=== PATIENT | female | born 1945 | race Caucasian/White ===

== ENCOUNTER 2022-06-18 09:55 | Outpatient (CLI) | payer MEDICARE, SELFPAY ==
--- NOTE | 2022-06-18 10:15 | CRLHL7_ITS ---
For Patients: As a result of the Cures Act, medical imaging exams and procedure reports are released immediately into your electronic medical record. You may view this report before your referring provider. If you have questions, please contact your health care provider. BILATERAL SCREENING MAMMOGRAM WITH COMPUTER-AIDED DETECTION AND TOMOSYNTHESIS TECHNIQUE: CC and MLO views were obtained. These mammographic images have been obtained using full-field digital technique. These mammographic images were interpreted with the benefit of computer-aided detection. Breast tomosynthesis was used in this interpretation. COMPARISON FILM: 05/06/21, 03/25/20, 03/02/19. FINDINGS: The breasts are heterogeneously dense, which may obscure small masses. IMPRESSION: There is no radiographic evidence for malignancy. ASSESSMENT: BI-RADS Category 2: Benign RECOMMENDATION: Routine screening mammogram in 1 year. A lay language report of this examination will be provided to the patient. JOSEPH GILBERT M.D. Diagnostic/Nuclear Medicine Radiologist [email or web address] Transcribed: 3:[address]/Dictated by: Joseph Gilbert MD @ 06/18/2022 11:28:00 AM (Electronically Signed)
== END 2022-06-18 09:56 | disposition home or self-care (01) ==
LOC: MAMMO 09:56
PROVIDERS: PCP Family Medicine; Visit Provider Physician Assistant
DX: Z12.31 Encounter for screening mammogram for malignant neoplasm of breast (principal); R92.2 Inconclusive mammogram
CPT/HCPCS: 77063; 77067

== ENCOUNTER 2023-06-28 09:56 | Outpatient (CLI) | payer MEDICARE, SELFPAY ==
--- NOTE | 2023-06-28 10:15 | CRLHL7_ITS ---
For Patients: As a result of the Century Cures Act, medical imaging exams and procedure reports are released immediately into your electronic medical record. You may view this report before your referring provider. If you have questions, please contact your health care provider. BILATERAL SCREENING MAMMOGRAM WITH COMPUTER-AIDED DETECTION AND TOMOSYNTHESIS TECHNIQUE: CC and MLO views were obtained. These mammographic images have been obtained using full-field digital technique. These mammographic images were interpreted with the benefit of computer-aided detection. Breast Tomosynthesis was used in this interpretation. COMPARISON FILM: 06/18/22, 05/06/21, 03/25/20. FINDINGS: The breasts are heterogeneously dense, which may obscure small masses IMPRESSION: There is no radiographic evidence for malignancy. ASSESSMENT: BI-RADS Category 2: Benign RECOMMENDATION: Routine screening mammogram in 1 year. A lay language report of this examination will be provided to the patient. Hernandez Diallo M.D. Diagnostic/Nuclear Medicine Radiologist [email or web address] EDYTA/Dictated by: Hernandez Diallo MD @ 06/28/2023 11:21:00 AM (Electronically Signed)
== END 2023-06-28 09:57 | disposition home or self-care (01) ==
LOC: MAMMO 09:58
PROVIDERS: PCP Physician Assistant; Visit Provider Physician Assistant
DX: Z12.31 Encounter for screening mammogram for malignant neoplasm of breast (principal); R92.2 Inconclusive mammogram
CPT/HCPCS: 77063; 77067

== ENCOUNTER 2024-06-30 09:53 | Outpatient (CLI) | payer MEDICARE, SELFPAY ==
--- NOTE | 2024-06-30 10:15 | CRLHL7_ITS ---
For Patients: As a result of the Century Cures Act, medical imaging exams and procedure reports are released immediately into your electronic medical record. You may view this report before your referring provider. If you have questions, please contact your health care provider. BILATERAL SCREENING MAMMOGRAM WITH COMPUTER-AIDED DETECTION AND TOMOSYNTHESIS TECHNIQUE: CC and MLO views were obtained. These mammographic images have been obtained using full-field digital technique. These mammographic images were interpreted with the benefit of computer-aided detection. Breast tomosynthesis was used in this interpretation. COMPARISON FILM: 06/28/2023, 06/18/2022, 05/06/2021. FINDINGS: There are scattered areas of fibroglandular density. IMPRESSION: There is no radiographic evidence for malignancy. ASSESSMENT: BI-RADS Category 2: Benign RECOMMENDATION: Routine screening mammogram in 1 year. A lay language report of this examination will be provided to the patient. KAUSHIK HUFF M.D. Diagnostic Radiologist [email or web address] CAROL/[email or web address] Transcribed: 06/30/2024, 4:[address]/Dictated by: Kaushik Huff MD @ 06/30/2024 11:48:00 AM (Electronically Signed)
== END 2024-06-30 09:54 | disposition home or self-care (01) ==
LOC: MAMMO 09:54
PROVIDERS: PCP Physician Assistant; Visit Provider Physician Assistant
DX: Z12.31 Encounter for screening mammogram for malignant neoplasm of breast (principal)
CPT/HCPCS: 77063; 77067

== ENCOUNTER 2025-07-05 09:12 | Outpatient (CLI) | payer MEDICARE, SELFPAY ==
--- NOTE | 2025-07-05 09:15 | CRLHL7_ITS ---
For Patients: As a result of the Century Cures Act, medical imaging exams and procedure reports are released immediately into your electronic medical record. You may view this report before your referring provider. If you have questions, please contact your health care provider. BILATERAL DIGITAL SCREENING MAMMOGRAM WITH COMPUTER-AIDED DETECTION AND TOMOSYNTHESIS CLINICAL HISTORY: : Routine screening exam. COMPARISON: 06/30/2024, 06/28/2023, 06/18/2022. TECHNIQUE: Digital mammogram in CC and MLO projections including computer-aided detection (CAD). Tomosynthesis was used in this interpretation. BREAST COMPOSITION: There are scattered areas of fibroglandular density. FINDINGS: RIGHT Breast: No suspicious findings. LEFT Breast: Focal asymmetric density within the lower inner quadrant. IMPRESSION: LEFT breast asymmetry/mass. RECOMMENDATIONS: Additional mammographic views of the LEFT breast including 3D spot compression CC/MLO and 3D true lateral. LEFT breast ultrasound may also be required. [facility] will contact the patient. A lay language report of this examination will be provided to the patient. BI-RADS Category 0: Incomplete: Need Additional Imaging Evaluation Dictated by Kaushik Lock MD @ 07/05/2025 10:34:36 AM /Dictated by: Kaushik Lock MD @ 07/05/2025 10:34:00 AM (Electronically Signed)
== END 2025-07-05 09:13 | disposition home or self-care (01) ==
LOC: MAMMO 09:13
PROVIDERS: PCP Physician Assistant; Visit Provider Physician Assistant
DX: Z12.31 Encounter for screening mammogram for malignant neoplasm of breast (principal); N63.20 Unspecified lump in the left breast, unspecified quadrant
CPT/HCPCS: 77063; 77067

== ENCOUNTER 2025-07-17 09:26 | Outpatient (CLI) | payer MEDICARE, SELFPAY ==
--- NOTE | 2025-07-17 09:45 | CRLHL7_ITS ---
For Patients: As a result of the Cures Act, medical imaging exams and procedure reports are released immediately into your electronic medical record. You may view this report before your referring provider. If you have questions, please contact your health care provider. DIGITAL DIAGNOSTIC LEFT MAMMOGRAM USING TOMOSYNTHESIS LEFT BREAST ULTRASOUND CLINICAL HISTORY: LEFT breast mass/asymmetry. COMPARISON: 07/05/2025, 06/30/2024, 06/28/2023. TECHNIQUE: Digital LEFT mammogram in three projections. Tomosynthesis was used in this interpretation. Real-time ultrasound imaging of LEFT breast with imaging documentation. BREAST COMPOSITION: There are scattered areas of fibroglandular density. FINDINGS: Additional mammogram images LEFT breast submitted. Decreased conspicuity of previously noted asymmetric density. No architectural distortion. No suspicious calcifications. Targeted LEFT breast ultrasound performed at 9 o`clock 3 cm from the nipple. Normal fibroglandular tissue is present. No fibrocystic change or mass. IMPRESSION: No evidence of malignancy. RECOMMENDATIONS: Routine screening mammography. A lay language report of this examination will be provided to the patient. BI-RADS Category 2: Benign Dictated by Kaushik Lock MD @ 07/17/2025 10:26:02 AM jj/Dictated by: Kaushik Lock MD @ 07/17/2025 10:26:00 AM (Electronically Signed)
--- NOTE | 2025-07-17 10:15 | CRLHL7_ITS ---
For Patients: As a result of the Cures Act, medical imaging exams and procedure reports are released immediately into your electronic medical record. You may view this report before your referring provider. If you have questions, please contact your health care provider. SEE DIGITAL DIAGNOSTIC LEFT MAMMOGRAM PERFORMED SAME DAY CRL:[email or web address] salas/Dictated by: Kaushik Lokc MD @ 07/17/2025 10:26:00 AM (Electronically Signed)
== END 2025-07-17 09:27 | disposition home or self-care (01) ==
LOC: MAMMO 09:26
PROVIDERS: PCP Physician Assistant; Visit Provider Physician Assistant
DX: N63.20 Unspecified lump in the left breast, unspecified quadrant (principal); R92.8 Other abnormal and inconclusive findings on diagnostic imaging of breast
CPT/HCPCS: 76642; 77065; G0279

== ENCOUNTER 2025-07-23 12:05 | Outpatient (CLI) | payer MEDICARE, SELFPAY | END 2025-07-23 12:06 | disposition home or self-care (01) | LOC: AMB 07-25 17:58 | PROVIDERS: PCP Physician Assistant; Visit Provider Family Medicine | DX: R55 Syncope and collapse (principal) | CPT/HCPCS: A0998 ==